=== PATIENT | female | born 1955 | race Caucasian/White ===

== ENCOUNTER 2016-03-11 11:03 | Emergency (ER) | payer MEDICAID, OTHER ==
[2016-03-11 11:53] VITALS: BP 122/69
--- NOTE | 2016-03-11 12:29 | UC ---
FLU HPI - HPI Summary HPI Summary: 60 F w/ PMH of asthma presents with dry cough, fever, body aches, vomiting, generalized weakness sinus pressure, runny nose, headaches, generalized abdominal pain, nausea for 3 days. Nausea and vomiting has resolved denies any diarrhea. Denies any chest pain or SOB. She had to use inhaler once at night. She took Tylenol last night. - History of Current Complaint Chief Complaint: UCRespiratory Stated Complaint: NAUSEA VOMITING COUGH HEADACHE CONGESTION Time Seen by Provider: 03/11/16 12:22 - Allergy/Home Medications Allergies/Adverse Reactions: Allergies Allergy/AdvReac Type Severity Reaction Status Date / Time Sulfa Drugs Allergy Itchy red Verified 03/11/16 11:54 rash,trouble breathing Environmental/Seasonal Allergy Unknown Uncoded 03/11/16 11:54 Hayfever Reaction Details PMH/Surg Hx/FS Hx/Imm Hx Endocrine History Of: Reports: Thyroid Disease - removed Denies: Diabetes Cardiovascular History Of: Denies: Cardiac Disorders, Hypertension Respiratory History Of: Reports: Asthma - INHALERS, OCCASIONAL WHEEZING Denies: COPD GI/ History Of: Denies: Ulcer - Surgical History Surgical History: Yes Surgery Procedure, Year, and Place: 1974 TONSILLECTOMY, [place]. 1989 THYROID NODULE REMOVED, [place]. 1990 LEFT OVARIAN CYSTECTOMY, [place]. 1985 NEUROMA REMOVED BOTTOM OF LEFT FOOT, [facility] [place] - Family History Known Family History: Positive: Hypertension - Social History Alcohol Use: Daily Substance Use Type: None Smoking Status (MU): Never Smoked Tobacco Review of Systems Constitutional: Fever ENT: Sore Throat, Nasal Discharge Respiratory: Cough Cardiovascular: Negative Gastrointestinal: Abdominal Pain Neurological: Headache All Other Systems Reviewed And Are Negative: Yes Physical Exam Triage Information Reviewed: Yes Appearance: Ill-Appearing Vital Signs: Initial Vital Signs Temp 98.6 F 03/11/16 11:50 Pulse 82 03/11/16 11:50 Resp 18 03/11/16 11:50 BP 122/69 03/11/16 11:50 Pulse Ox 99 03/11/16 11:50 Vital Signs Reviewed: Yes Eyes: Positive: Conjunctiva Clear ENT: Positive: Normal ENT inspection, Pharynx normal, Nasal drainage, TMs normal Neck: Positive: Supple, Nontender, No Lymphadenopathy Respiratory: Positive: Lungs clear, Normal breath sounds Cardiovascular: Positive: RRR Abdomen Description: Positive: Nontender, Soft Bowel Sounds: Positive: Present Flu Course/Dx - Course Course Of Treatment: flu postivie, symptoms consistent with flu, discussed too late for antiviral because at 36 hours currently, patient agrees with plan - Differential Dx/Diagnosis Differential Diagnosis/HQI/PQRI: Bronchitis, Influenza, Pneumonia, Upper Respiratory Infection Provider Diagnoses: influenza Discharge - Discharge Plan Condition: Good Disposition: HOME Prescriptions: Fluticasone NASAL SPRAY 50MCG* [Flonase NASAL SPRAY 50MCG*] 2 spray BOTH NARES DAILY #1 btl Patient Education Materials: Influenza (ED) Forms: *Work Release Referrals: Ulises Pollard MD [Primary Care Provider] - Additional Instructions: Take Tylenol and ibuprofen for muscle aches and fever every 6 hours. Use Flonase one spray twice a day in each nostril Practice good hand washing technique Saline rinse can be used multiple times a day for nasal congestion Use humidifier in room or place bowls of warm water around room Try to drink fluids every hour and eat a small snack every 3 hours Return to ED if develop fever that does not respond to Tylenol or ibuprofen, new productive cough, or if symptoms become worst or develop new symptoms.
== END 2016-03-11 12:56 | disposition home or self-care (01) ==
LOC: UCEAST 11:03
DX: J11.1 Influenza due to unidentified influenza virus with other respiratory manifestations (principal); Z88.2 Allergy status to sulfonamides; J45.909 Unspecified asthma, uncomplicated
CPT/HCPCS: 87502; 99212; G0463

== ENCOUNTER 2016-04-04 15:10 | Emergency (ER) | payer OTHER, MEDICAID ==
[2016-04-04 15:43] VITALS: BP 118/72
--- NOTE | 2016-04-04 16:41 | UC ---
Throat Pain/Nasal Skip HPI - HPI Summary HPI Summary: DIAGNOSED WITH THE FLU 03/11/16. SINCE THAT TIME, SINUS CONGESTION HAS CONTINUED. LAST WEEK HAS HAD HEADACHE FATIGUE, SINUS PAIN WORSEING ON RIGHT SIDE - History of Current Complaint Chief Complaint: UCGeneralIllness Stated Complaint: HEADACHE, THROAT PAIN Time Seen by Provider: 04/04/16 16:04 Hx Obtained From: Patient Onset/Duration: Gradual Onset, Lasting Weeks, Still Present Cough: Nonproductive Associated Signs & Symptoms: Positive: Sinus Discomfort, Nasal Discharge, Fever - Epiglottits Risk Factors Epiglottis Risk Factors: Negative - Allergies/Home Medications Allergies/Adverse Reactions: Allergies Allergy/AdvReac Type Severity Reaction Status Date / Time Sulfa Drugs Allergy Itchy red Verified 04/04/16 15:43 rash,trouble breathing Environmental/Seasonal Allergy Unknown Uncoded 04/04/16 15:43 Hayfever Reaction Details PMH/Surg Hx/FS Hx/Imm Hx Previously Healthy: Yes Endocrine History Of: Reports: Thyroid Disease - removed Denies: Diabetes Cardiovascular History Of: Denies: Cardiac Disorders, Hypertension Respiratory History Of: Reports: Asthma - INHALERS, OCCASIONAL WHEEZING Denies: COPD GI/ History Of: Denies: Ulcer - Surgical History Surgical History: Yes Surgery Procedure, Year, and Place: 1974 TONSILLECTOMY, [place]. 1989 THYROID NODULE REMOVED, [place]. 1990 LEFT OVARIAN CYSTECTOMY, [place]. 1985 NEUROMA REMOVED BOTTOM OF LEFT FOOT, [facility] [place] - Family History Known Family History: Positive: Hypertension - Social History Occupation: Employed Full-time Lives: With Family Alcohol Use: Occasionally Substance Use Type: None Smoking Status (MU): Never Smoked Tobacco Review of Systems Constitutional: Chills, Fatigue Skin: Negative Eyes: Negative ENT: Ear Ache, Nasal Discharge Respiratory: Cough Cardiovascular: Negative Gastrointestinal: Negative Genitourinary: Negative Motor: Negative Neurovascular: Negative Musculoskeletal: Negative Neurological: Negative Psychological: Negative All Other Systems Reviewed And Are Negative: Yes Physical Exam Triage Information Reviewed: Yes Appearance: No Pain Distress, Well-Nourished, Ill-Appearing - MILD, Thin Vital Signs: Initial Vital Signs Temp 98.8 F 04/04/16 15:40 Pulse 87 04/04/16 15:40 Resp 18 04/04/16 15:40 BP 118/72 04/04/16 15:40 Pulse Ox 98 04/04/16 15:40 Vital Signs Reviewed: Yes Eye Exam: Normal Eyes: Positive: Conjunctiva Clear ENT: Positive: Normal ENT inspection, Hearing grossly normal, Pharynx normal, Nasal congestion, TM bulging, TM dull Dental Exam: Normal Neck exam: Normal Neck: Positive: Supple, Nontender, No Lymphadenopathy Respiratory Exam: Normal Respiratory: Positive: Chest non-tender, Lungs clear, Normal breath sounds, No respiratory distress, No accessory muscle use Cardiovascular Exam: Normal Cardiovascular: Positive: RRR, No Murmur, Pulses Normal Abdominal Exam: Normal Abdomen Description: Positive: Nontender, No Organomegaly Musculoskeletal Exam: Normal Musculoskeletal: Positive: Strength Intact, ROM Intact Neurological Exam: Normal Psychological Exam: Normal Psychological: Positive: Normal Response To Family Skin Exam: Normal Throat Pain/Nasal Course/Dx - Differential Dx/Diagnosis Differential Diagnosis/HQI/PQRI: Otitis Media, Pharyngitis, Sinusitis, URI Provider Diagnoses: SINUSITIS Discharge - Discharge Plan Condition: Stable Disposition: HOME Prescriptions: Amoxicillin/Clavulanate TAB* [Augmentin TAB 875*] 875 mg PO BID #20 tab Benzonatate CAP* [Tessalon CAP*] 100 mg PO TID #15 cap Patient Education Materials: Sinusitis (ED) Forms: *Work Release Referrals: Ulises Pollard MD [Primary Care Provider] -
== END 2016-04-04 16:42 | disposition home or self-care (01) ==
LOC: UCEAST 15:10
DX: J32.9 Chronic sinusitis, unspecified (principal); Z88.2 Allergy status to sulfonamides
CPT/HCPCS: 99212; G0463

== ENCOUNTER 2016-10-08 15:45 | Emergency (ER) | payer OTHER ==
[2016-10-08 15:54] VITALS: BP 105/68
--- NOTE | 2016-10-08 16:39 | UC ---
Respiratory Complaint HPI - HPI Summary HPI Summary: Pt presents to the with complaints of face pressure, green discharge. Mild dental pain, eye pressure. No fevers, chills + PND + ear fullness L>R + mild cough, no productive. 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 Pt with nasal polyps - no surgery. PT with h/o sinusitis - states feels similar. Pt's medications reviewed this visit. - History of Current Complaint Chief Complaint: UCRespiratory Stated Complaint: URI Time Seen by Provider: 10/08/16 16:23 Hx Obtained From: Patient ?: No Onset/Duration: Gradual Onset, Lasting Days Severity Initially: Mild Severity Currently: Moderate Pain Intensity: 9 Character: Cough: Nonproductive Associated Signs And Symptoms: Negative: Fever, Chills, Dizziness - Allergies/Home Medications Allergies/Adverse Reactions: Allergies Allergy/AdvReac Type Severity Reaction Status Date / Time Sulfa Drugs Allergy Itchy red Verified 04/04/16 15:43 rash,trouble breathing Environmental/Seasonal Allergy Unknown Uncoded 04/04/16 15:43 Hayfever Reaction Details Home Medications: Home Medications Dextromethorphan-Phenylephrine [Cold Multi-Symptom Daytim] 1 tab PO 10/08/16 [ History] PMH/Surg Hx/FS Hx/Imm Hx Previously Healthy: Yes - Surgical History Surgical History: Yes Surgery Procedure, Year, and Place: 1974 TONSILLECTOMY, [place]. 1989 THYROID NODULE REMOVED, [place]. 1990 LEFT OVARIAN CYSTECTOMY, [place]. 1985 NEUROMA REMOVED BOTTOM OF LEFT FOOT, [facility] [place] - Family History Known Family History: Positive: Hypertension - Social History Occupation: Employed Full-time Lives: With Family Alcohol Use: Occasionally Substance Use Type: None Smoking Status (MU): Never Smoked Tobacco Review of Systems Constitutional: Negative Skin: Negative Eyes: Negative ENT: Ear Ache, Nasal Discharge, Sinus Congestion, Sinus Pain/Tenderness Respiratory: Negative Cardiovascular: Negative Gastrointestinal: Negative Genitourinary: Negative Motor: Negative Neurovascular: Negative Musculoskeletal: Negative Neurological: Negative Psychological: Negative All Other Systems Reviewed And Are Negative: Yes Physical Exam Triage Information Reviewed: Yes Appearance: Well-Appearing, No Pain Distress, Well-Nourished Vital Signs: Initial Vital Signs Temp 97.9 F 10/08/16 15:51 Pulse 83 10/08/16 15:51 Resp 18 10/08/16 15:51 BP 105/68 10/08/16 15:51 Pulse Ox 96 10/08/16 15:51 Vital Signs Reviewed: Yes Eye Exam: Normal Eyes: Positive: Conjunctiva Clear ENT Exam: Normal ENT: Positive: Hearing grossly normal, Pharynx normal, TMs normal, Other: - turbinates inflammed b/l left ear with + fluid right TM wnl No exudate, no erythema + PND + TTP sinuses L>R. Negative: Nasal drainage Dental Exam: Normal Neck exam: Normal Neck: Positive: Supple, Nontender, No Lymphadenopathy Respiratory Exam: Normal Respiratory: Positive: Chest non-tender, Lungs clear, Normal breath sounds, No respiratory distress, No accessory muscle use Cardiovascular Exam: Normal Cardiovascular: Positive: RRR, No Murmur, Pulses Normal Abdominal Exam: Normal Abdomen Description: Positive: Nontender, No Organomegaly, Soft Bowel Sounds: Positive: Present Musculoskeletal Exam: Normal Neurological Exam: Normal Neurological: Positive: Alert Psychological Exam: Normal Psychological: Positive: Normal Response To Family Skin Exam: Normal UC Diagnostic Evaluation - Laboratory O2 Sat by Pulse Oximetry: 96 Respiratory Course/Dx - Course Course Of Treatment: Pt presents with sinus congestion, PND, max sinus pain L> R. Pt with sx x 1 week. Pt with h/o sinusitis - states feels similar. Will give Amox. continue flonase. secretion precautions. PCP f/u prn - Differential Dx/Diagnosis Provider Diagnoses: sinusitis Discharge - Discharge Plan Condition: Stable Disposition: HOME Prescriptions: Amoxicillin PO (*) [Amoxicillin 875 MG (*)] 875 mg PO BID #20 tab Patient Education Materials: Rhinosinusitis (ED) Referrals: Ulises Pollard MD [Primary Care Provider] - Additional Instructions: - Stay well hydrated. Drink plenty of non-alcoholic, non-caffinated beverages. - After you have been on antibiotics for 2 days - change your toothbrush and your pillowcase. These infections are spread by secretions - do NOT share eating or drinking utensils - clean items you share with other people such as cell phones, computer mouse, TV remote, computer tablets, etc - Take antibiotics as prescribed until gone - continue to use your nasal spray as previously prescribed - okay to take decongestant as previous - Contact your doctor or return with questions or concerns
== END 2016-10-08 16:41 | disposition home or self-care (01) ==
LOC: UCEAST 15:45
DX: J32.9 Chronic sinusitis, unspecified (principal); Z88.2 Allergy status to sulfonamides
CPT/HCPCS: 99212; G0463

== ENCOUNTER 2017-08-15 08:16 | Emergency (ER) | payer OTHER ==
[2017-08-15 08:30] VITALS: BP 109/66
--- NOTE | 2017-08-15 09:16 | RAD ---
INDICATION: Right foot pain. TECHNIQUE: 3 views of the right foot were obtained. FINDINGS: There is soft tissue swelling present over the metatarsal bones. The bones are normal alignment. No fracture is seen. Joint spaces appear maintained. IMPRESSION: SOFT TISSUE SWELLING, NO FRACTURE IS SEEN.
--- NOTE | 2017-08-15 09:26 | UC ---
Arnold Yu Julia, scribed for Thee Jose MD on 08/15/17 at 0847 . Lower Extremity/Ankle HPI - HPI Summary HPI Summary: A 61 year old F presents to [facility] with a chief complaint of pain, redness, and swelling to the dorsal aspect of the right foot since yesterday. Patient denies hx of trauma, but states that she was wearing flip flops yesterday. Pain is 8/10 in severity, on triage. - History of Current Complaint Chief Complaint: UCLowerExtremity Stated Complaint: FOOT INJURY Time Seen by Provider: 08/15/17 08:21 Hx Obtained From: Patient Onset/Duration: Lasting Days Pain Intensity: 8 Pain Scale Used: 0-10 Numeric Able to Bear Weight: Yes - Allergies/Home Medications Allergies/Adverse Reactions: Allergies Allergy/AdvReac Type Severity Reaction Status Date / Time Sulfa (Sulfonamide Allergy rash Verified 08/15/17 08:31 Antibiotics) difficulty breathing Environmental/Seasonal Allergy Unknown Uncoded 04/04/16 15:43 Hayfever Reaction Details PMH/Surg Hx/FS Hx/Imm Hx Previously Healthy: Yes Endocrine History: Thyroid Disease - Surgical History Surgical History: Yes Surgery Procedure, Year, and Place: 1974 TONSILLECTOMY, [place]. 1989 THYROID NODULE REMOVED, [place]. 1990 LEFT OVARIAN CYSTECTOMY, [place]. 1985 NEUROMA REMOVED BOTTOM OF LEFT FOOT, [facility] [place] - Family History Known Family History: Positive: Hypertension - Social History Alcohol Use: Occasionally Substance Use Type: None Smoking Status (MU): Never Smoked Tobacco Review of Systems Skin: Other - erythema R foot Musculoskeletal: Edema - R foot, Myalgia - R foot All Other Systems Reviewed And Are Negative: Yes Physical Exam - Summary Physical Exam Summary: VITAL SIGNS: Reviewed. GENERAL: Patient is a well-developed and nourished female who is lying comfortable in the stretcher. Patient is not in any acute respiratory distress. HEAD AND FACE: Normocephalic EYES: PERRLA, EOMI x 2. EARS: Hearing grossly intact. MOUTH: Oropharynx within normal limits. NECK: Supple, trachea is midline, no adenopathy, no JVD, no carotid bruit. CHEST: Symmetric, no tenderness at palpation LUNGS: Clear to auscultation bilaterally. No wheezing or crackles. CVS: Regular rate and rhythm, S1 and S2 present, no murmurs or gallops appreciated. ABDOMEN: Soft, non-tender. Bowel sounds are normal. No abdominal abnormal pulsations. EXTREMITIES: Full ROM in all major joints, no cyanosis or clubbing. Swelling and tenderness to dorsal aspect of the R foot. NEURO: Alert and oriented x 3. No acute neurological deficits. Speech is normal and follows commands. SKIN: Dry and warm Triage Information Reviewed: Yes Vital Signs: Initial Vital Signs Temp 98 F 08/15/17 08:28 Pulse 82 08/15/17 08:28 Resp 16 08/15/17 08:28 BP 109/66 08/15/17 08:28 Pulse Ox 100 08/15/17 08:28 Vital Signs Reviewed: Yes Diagnostics - Radiology R FOOT XR Radiology Interpretation Completed By: Radiologist - SOFT TISSUE SWELLING, NO FRACTURE IS SEEN. Dr. Jose has reviewed this report. Lower Extremity Course/Dx - Course Course Of Treatment: X-ray shows no fracture or dislocation. This erythema and swelling in the right foot therefore I will treat as cellulitis. I recommended the patient to follow with the primary care physician in the next 2-3 days. She understands and agrees. Patient is hemodynamically stable, alert and oriented 3. - Differential Dx/Diagnosis Provider Diagnoses: Cellulitis Discharge - Sign-Out/Discharge Documenting (check all that apply): Discharge/Admit/Transfer - Discharge Plan Condition: Stable Disposition: HOME Prescriptions: Cephalexin CAP* [Keflex CAP*] 500 mg PO QID #40 cap Patient Education Materials: Cellulitis (ED) Forms: *Work Release Referrals: Les Mckeon MD [Primary Care Provider] - Additional Instructions: Take medications as instructed Increase your fluid intake Return to the if symptoms worsen - Billing Disposition and Condition Condition: STABLE Disposition: Home The documentation as recorded by the Arnold baumann Julia accurately reflects the service I personally performed and the decisions made by , Thee Jose MD.
== END 2017-08-15 09:21 | disposition home or self-care (01) ==
LOC: UCEAST 08:16
DX: L03.115 Cellulitis of right lower limb (principal); Z88.2 Allergy status to sulfonamides; Z91.09 Other allergy status, other than to drugs and biological substances
CPT/HCPCS: 99212; G0463

== ENCOUNTER 2017-08-17 09:32 | Emergency (ER) | payer OTHER ==
[2017-08-17 09:51] VITALS: BP 101/62
--- NOTE | 2017-08-17 15:12 | UC ---
Joel Yu Natalie, scribed for Charlotte Esquivel MD on 08/17/17 at 1258 . Lower Extremity/Ankle HPI - HPI Summary HPI Summary: The patient is a 61 y/o F presenting to the ED c/o pain and swelling in her right foot starting 08/14/17. She had been ambulating more than normal the day before. She came to [facility] on 08/15/17, where she had an XR taken, and it was negative for fracture. There was a possibility of cellulitis, so she was prescribed Keflex. The swelling has not decreased since then, but the redness has dissipated. The pain is rated 8/10 in severity. She denies fever and chills. She reports that she has had stress fractures in her left foot before, and this feels similar. Her orthopedist is Dr. Quiroz. - History of Current Complaint Chief Complaint: UCWounds Stated Complaint: FOOT PAIN Time Seen by Provider: 08/17/17 10:21 Hx Obtained From: Patient Onset/Duration: Sudden Onset, Lasting Days, Still Present Severity Initially: Moderate Severity Currently: Moderate Pain Intensity: 8 Pain Scale Used: 0-10 Numeric Aggravating Factor(s): Ambulation Alleviating Factor(s): Other - Keflex Feet (Multiple View): 1 - Swelling in the right dorsal foot - Allergies/Home Medications Allergies/Adverse Reactions: Allergies Allergy/AdvReac Type Severity Reaction Status Date / Time Sulfa (Sulfonamide Allergy rash Verified 08/17/17 09:51 Antibiotics) difficulty breathing Environmental/Seasonal Allergy Unknown Uncoded 08/17/17 09:51 Hayfever Reaction Details PMH/Surg Hx/FS Hx/Imm Hx - Additional Past Medical History Additional PMH: POSITIVE: stress fractures in right foot Previously Healthy: Yes Other Endocrine History: NEGATIVE: diabetes Respiratory History: Asthma - Surgical History Surgical History: Yes Surgery Procedure, Year, and Place: 1974 TONSILLECTOMY, [place]. 1989 THYROID NODULE REMOVED, [place]. 1990 LEFT OVARIAN CYSTECTOMY, [place]. 1985 NEUROMA REMOVED BOTTOM OF LEFT FOOT, [facility] [place] - Family History Known Family History: Positive: Hypertension, Diabetes - Social History Alcohol Use: Occasionally Substance Use Type: None Smoking Status (MU): Never Smoked Tobacco Review of Systems Constitutional: Other - NEGATIVE: fevers, chills Skin: Other - swelling of dorsum of left foot l ENT: Negative Respiratory: Negative Cardiovascular: Negative Gastrointestinal: Negative Genitourinary: Negative Motor: Negative Neurovascular: Negative Musculoskeletal: Other: - POSITIVE: pain in right foot with swelling; NEGATIVE: redness Neurological: Negative Psychological: Negative Is Patient Immunocompromised?: No All Other Systems Reviewed And Are Negative: Yes Physical Exam - Summary Physical Exam Summary: Appearance: Well-Appearing, No Pain Distress, Well-Nourished Eyes: conjunctiva clear, no discharge ENT: Hearing grossly normal, no muffled/hoarse voice. Neck: Normal, Supple Respiratory/Lung Sounds: Lungs clear, Normal breath sounds, No respiratory distress, No accessory muscle use Cardiovascular: RRR, No murmur Abdomen: Nontender, Soft, no guarding, not distended Bowel Sounds: Present Musculoskeletal: difficulty with weight bearing . Redness in the dorsal aspect of right foot has resolved but there is swelling present. There is significant tenderness noted. Neurological: Alert, muscle tone normal Psychiatric:Normal, age appropriate behavior Skin: Normal, Warm, Dry, Normal color Triage Information Reviewed: Yes Vital Signs: Initial Vital Signs Temp 98.6 F 08/17/17 09:46 Pulse 81 08/17/17 09:46 Resp 18 08/17/17 09:46 BP 101/62 08/17/17 09:46 Pulse Ox 97 08/17/17 09:46 Vital Signs Reviewed: Yes Lower Extremity Course/Dx - Course Course Of Treatment: The patient is a 61 y/o F presenting to [facility] c/o pain and swelling in her right foot starting on 08/14/17. She had been ambulating more than normal the day before she noticed the pain, redness, and swelling. She came to [facility] on 08/15, where she was prescribed Keflex because the foot XR was negative for fracture. The redness has since been relieved by the Keflex, but the swelling and pain is still present. She has a hx of stress fractures in her right foot and asthma, which she uses a ventolin inhaler for. She does not have a hx of diabetes, but it is present in her family. She denies fevers and chills. Medications reviewed. Allergies noted. Patient will be discharged home with instructions for cellulitis. She is advised to continue taking Keflex as it seems to be helping and start using the CAM boot. She is to follow up with her PCP in one week and orthopedist, Dr. Quiroz, in 2 days for a consult. Patient is agreeable with this plan. - Differential Dx/Diagnosis Provider Diagnoses: cellulitis Discharge - Sign-Out/Discharge Documenting (check all that apply): Discharge/Admit/Transfer - Pt will be discharged home. - Discharge Plan Condition: Stable Disposition: HOME Patient Education Materials: Cellulitis (ED) Referrals: Tyrel Quiroz MD [Medical Doctor] - 2 Days Les Mckeon MD [Primary Care Provider] - 7 Days Additional Instructions: Continue taking keflex Start using the CAM boot . Follow up with your primary care doctor in 1 week. Please follow up with orthopedics in 2 days Return to Urgent care / ER if symptoms get worse. - Billing Disposition and Condition Condition: STABLE Disposition: Home Images Feet (Multiple View): 1 - dorsal aspect The documentation as recorded by the Joel baumann Natalie accurately reflects the service I personally performed and the decisions made by me, Charlotte Esquivel MD.
== END 2017-08-17 11:03 | disposition home or self-care (01) ==
LOC: UCEAST 09:32
DX: L03.115 Cellulitis of right lower limb (principal); J45.909 Unspecified asthma, uncomplicated
CPT/HCPCS: 99211; G0463

== ENCOUNTER 2017-09-21 10:06 | Emergency (ER) | payer OTHER ==
[2017-09-21 10:13] VITALS: BP 111/73
[2017-09-21] MEDS ORDERED: Albuterol 2.5 MG/3 ML NEB.SOL* (0.083%) INH ONE (10:59)
--- NOTE | 2017-09-21 10:59 | UC ---
Respiratory Complaint HPI - HPI Summary HPI Summary: Patient states that for the past 3 days she has been feeling aches and pains and nasal congestion setting off her asthma. She is running out of her inhalers and last use was possibly on 09-18-17. Patient denies any chills or fever and states she had night wheezing yesterday. - History of Current Complaint Chief Complaint: UCRespiratory Stated Complaint: COUGH, CHEST CONGESTION Time Seen by Provider: 09/21/17 10:51 Hx Obtained From: Patient ?: No Onset/Duration: Sudden Onset Timing: Constant Severity Initially: Mild Severity Currently: Moderate Pain Intensity: 5 Character: Cough: Nonproductive Aggravating Factors: Nothing Alleviating Factors: Bronchodilator, OTC Meds Associated Signs And Symptoms: Positive: Wheezing, Dizziness, URI, Nasal Congestion Related History: Seasonal Allergies - Risk Factors Pulmonary Embolism Risk Factors: Negative Cardiac Risk Factors: Negative Pseudomonas Risk Factors: Negative Tuberculosis Risk Factors: Negative - Allergies/Home Medications Allergies/Adverse Reactions: Allergies Allergy/AdvReac Type Severity Reaction Status Date / Time Sulfa (Sulfonamide Allergy rash Verified 09/21/17 10:13 Antibiotics) difficulty breathing Environmental/Seasonal Allergy Unknown Uncoded 09/21/17 10:13 Hayfever Reaction Details PMH/Surg Hx/FS Hx/Imm Hx Previously Healthy: Yes Respiratory History: Asthma - Surgical History Surgical History: Yes Surgery Procedure, Year, and Place: 1974 TONSILLECTOMY, [place]. 1989 THYROID NODULE REMOVED, [place]. 1990 LEFT OVARIAN CYSTECTOMY, [place]. 1985 NEUROMA REMOVED BOTTOM OF LEFT FOOT, [facility] [place]. 2002 ARTHROSCOPIC LEFT KNEE [place] - Family History Known Family History: Positive: Hypertension, Diabetes - Social History Alcohol Use: Occasionally Substance Use Type: None Smoking Status (MU): Never Smoked Tobacco Review of Systems Constitutional: Negative Respiratory: Shortness Of Breath All Other Systems Reviewed And Are Negative: Yes Physical Exam Triage Information Reviewed: Yes Appearance: Well-Appearing, No Pain Distress, Well-Nourished Vital Signs: Initial Vital Signs Temp 98.2 F 09/21/17 10:09 Pulse 86 09/21/17 10:09 Resp 18 09/21/17 10:09 BP 111/73 09/21/17 10:09 Pulse Ox 97 09/21/17 10:09 Vital Signs Reviewed: Yes Eyes: Positive: Conjunctiva Clear ENT: Positive: Hearing grossly normal, Pharynx normal, TMs normal, Sinus tenderness, Uvula midline Neck: Positive: Supple, Nontender, No Lymphadenopathy Respiratory: Positive: Chest non-tender, No accessory muscle use, Wheezing, Expiration Cardiovascular: Positive: RRR, No Murmur, Pulses Normal, Brisk Capillary Refill Diagnostic Evaluation - Laboratory O2 Sat by Pulse Oximetry: 97 Respiratory Course/Dx - Course Course Of Treatment: asthma exacerbation, was treated with albuterol nebulization and first dose of prednisone was given at the . Patient had improvement of symptoms and resolution of wheezing with medications. Continue prednisone with breakfast for 4 days, inhalers as prescribed, f/u with PCP - Differential Dx/Diagnosis Provider Diagnoses: Bronchial Asthma exacerbation Discharge - Sign-Out/Discharge Documenting (check all that apply): Patient Departure - Discharge Plan Condition: Good Disposition: HOME Patient Education Materials: Fluticasone (By breathing), Asthma (DC) Referrals: Les Mckeon MD [Primary Care Provider] - - Billing Disposition and Condition Condition: GOOD Disposition: Home
[2017-09-21] MEDS ORDERED: predniSONE TAB* 20 MG PO ONE (11:00)
== END 2017-09-21 11:39 | disposition home or self-care (01) ==
LOC: UCEAST 10:06
DX: J45.901 Unspecified asthma with (acute) exacerbation (principal); Z88.2 Allergy status to sulfonamides; Z82.49 Family history of ischemic heart disease and other diseases of the circulatory system; Z83.3 Family history of diabetes mellitus
CPT/HCPCS: 99213; G0463; J7512

== ENCOUNTER 2018-01-07 15:19 | Emergency (ER) | payer OTHER ==
[2018-01-07 15:29] VITALS: BP 118/67
--- NOTE | 2018-01-07 15:29 | UC ---
Hand/Wrist HPI - HPI Summary HPI Summary: 62-year-old woman comes to clinic today with a chief complaint of pain in the right distal index finger. This prior to arrival she was making a bed and she was shoveling her hand underneath the bed and she struck something with her right index finger. She had pain right away and is primarily in the distal finger and she's having hard time moving the DIP joint of that finger. Movement and palpation makes the pain worse not moving it not palpating does not make the pain worse. No skin break. - History Of Current Complaint Stated Complaint: FINGER INJURY Time Seen by Provider: 01/07/18 15:22 - Allergies/Home Medications Allergies/Adverse Reactions: Allergies Allergy/AdvReac Type Severity Reaction Status Date / Time Sulfa (Sulfonamide Allergy rash Verified 01/07/18 15:24 Antibiotics) difficulty breathing Environmental/Seasonal Allergy Unknown Uncoded 01/07/18 15:24 Hayfever Reaction Details PMH/Surg Hx/FS Hx/Imm Hx Previously Healthy: Yes Respiratory History: Asthma - Surgical History Surgical History: Yes Surgery Procedure, Year, and Place: 1974 TONSILLECTOMY, [place]. 1989 THYROID NODULE REMOVED, [place]. 1990 LEFT OVARIAN CYSTECTOMY, [place]. 1985 NEUROMA REMOVED BOTTOM OF LEFT FOOT, [facility] [place]. 2002 ARTHROSCOPIC LEFT KNEE BRE[place] - Family History Known Family History: Positive: Hypertension, Diabetes - Social History Alcohol Use: Occasionally Substance Use Type: None Smoking Status (MU): Never Smoked Tobacco Review of Systems All Other Systems Reviewed And Are Negative: Yes Constitutional: Positive: Negative Skin: Positive: Negative Eyes: Positive: Negative ENT: Positive: Negative Respiratory: Positive: Negative Cardiovascular: Positive: Negative Gastrointestinal: Positive: Negative Motor: Positive: Negative Neurovascular: Positive: Negative Musculoskeletal: Positive: Other: - SEE HPI Neurological: Positive: Negative Psychological: Positive: Negative Is Patient Immunocompromised?: No Physical Exam Triage Information Reviewed: Yes Appearance: Well-Appearing, No Pain Distress, Well-Nourished Vital Signs Reviewed: Yes Eye Exam: Normal Eyes: Positive: Conjunctiva Clear Neck exam: Normal Neck: Positive: Supple Respiratory: Positive: No respiratory distress Musculoskeletal: Positive: Other: - Patient has some swelling and tenderness to palpation at the right index finger DIP. She keeps the joint slightly flexed. No sensation deficit normal capillary refill. Neurological Exam: Normal Neurological: Positive: Alert, Muscle Tone Normal Psychological Exam: Normal Psychological: Positive: Age Appropriate Behavior Skin Exam: Normal Hand/Wrist Course/Dx - Course Course Of Treatment: Order Information: FINGER RIGHT 2ND (INDEX). Accession Number: [id number]. CPT: 30856. Indication: RIGHT second finger distal interphalangeal joint region pain following injury. Jamming-type injury. Comparison: No relevant prior exams available on the [facility] [place] PACS for comparison. Technique: 3 views RIGHT second finger. REPORT AND IMPRESSION: #. Mild flexion deformity at the distal interphalangeal joint. Suggestion of tiny bone. fragments dorsal to the distal interphalangeal joint concerning for potential avulsion of. the extensor tendon. Correlate with clinical assessment. Fusiform soft tissue swelling. ___. <Electronically signed by Thee Zelaya MD in [place]> 01/07/18 1378. I discussed the x-ray results with the patient. A splint was placed on the left index finger at the DIP holding it in extension by nursing. Neurovascularly intact after splint placement. The plan is to follow-up with orthopedics. 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 CALL TO ARRANGE AN APPOINTMENT. GET RECHECKED FOR ANY WORSENING OF YOUR CONDITION OR QUESTIONS OR CONCERNS. - Billing Disposition and Condition Condition: STABLE Disposition: Home
== END 2018-01-07 16:00 | disposition home or self-care (01) ==
LOC: UCEAST 15:19
DX: M20.012 Mallet finger of left finger(s) (principal); Z88.2 Allergy status to sulfonamides
CPT/HCPCS: 73140; 99212; G0463

== ENCOUNTER 2018-03-23 15:12 | Emergency (ER) | payer OTHER ==
--- OUTSIDE RECORDS SUMMARY | 2018-03-23 15:17 | XMS REPORT | Continuity of Care Document ---
:1955 External Reference #:[id number] Author Name Tarah Mirza Care Team Providers Name Role Phone Radha Rock NP Primary Care Physician Unavailable Payers Type Date Identification Numbers Payment Provider Subscriber Policy Number: [id number] Keith Gaines PayID: [id number] [address] [place] [address] Advance Directives Description No Information Available Problems Date Description Provider Status Onset: 12/30/2016 Seasonal allergic rhinitis Vesna Osei NP Active Onset: 12/30/2016 Asthma Vesna Osei NP Active Family History Date Family Member(s) Problem(s) Comments Father Diabetes Type II Father Crohn's Disease Father Alzheimer's Disease age 83 Mother Diabetes Type II oral meds/diet/exercise, living at 85 Social History Type Date Description Comments Sex Unknown 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 Varn, N.P. Florastor 06/27/ Active Capsules 250mg 60caps 1 by R14.0 Radha 2017 mouth Varn, N.P. 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 each nostril every day Ventolin HFA / Active Aerosol 108(90Base 8gm inhale Radha 0000 ) mcg/Act two puffs Varn, N.P. into lungs every 4 hours as needed for cough and whee Amoxicillin/C 06/27/ Hx Tablets 875-125mg 20tabs one R68.84 Radah lavulanate 2018 - tablet by Varn, N.P. Potassium 07/07/ mouth 2018 twice daily for 10 days Medications Administered in Office Medication Date Status Form Strength Qnty SIG Indications Ordering Provider PPD Administered Injection Nurse Visit 7 [place] Immunizations CPT Code Status Date Vaccine Reaction Lot # [id number] Given 11/27/2017 Influenza Virus Vaccine, No immediate [id number] Quadrivalent, Split, reaction...jh Preservative Free Vital Signs Date Vital Result Comment 03/11/2018 1:07pm Height 66.25 inches 5'6.25" Weight 150.00 lb Heart Rate 79 /min BP Systolic 121 mmHg BP Diastolic 68 mmHg Body Temperature 97.0 F O2 % BldC Oximetry 96 % BMI (Body Mass Index) 24.0 kg/m2 02/20/2018 11:35am Height 66.0 inches 5'6" Heart Rate 74 /min BP Systolic Sitting 112 mmHg BP Diastolic Sitting 78 mmHg Pain Level 0 01/09/2018 2:59pm Height 66.0 inches 5'6" Weight 154.00 lb BP Systolic 118 mmHg BP Diastolic 74 mmHg Pain Level 4 BMI (Body Mass Index) 24.9 kg/m2 11/27/2017 11:02am Height 67 inches 5'7" Weight 154.00 lb Heart Rate 75 /min BP Systolic 110 mmHg BP Diastolic 72 mmHg Body Temperature 97.8 F O2 % BldC Oximetry 96 % BMI (Body Mass Index) 24.1 kg/m2 10/27/2017 1:21pm Height 67 inches 5'7" Weight 153.00 lb Heart Rate 77 /min BP Systolic 104 mmHg BP Diastolic 62 mmHg O2 % BldC Oximetry 97 % BMI (Body Mass Index) 24.0 kg/m2 06/27/2017 3:29pm Weight 149.00 lb Heart Rate 93 /min BP Systolic 122 mmHg BP Diastolic 60 mmHg Body Temperature 99.0 F O2 % BldC Oximetry 96 % 04/28/2017 1:42pm Weight 150.00 lb Heart Rate 76 /min BP Systolic 117 mmHg BP Diastolic 82 mmHg Body Temperature 97.9 F O2 % BldC Oximetry 98 % 12/30/2016 8:58am Height 67 inches 5'7" Weight 144.00 lb Heart Rate 83 /min BP Systolic Sitting 122 mmHg BP Diastolic Sitting 87 mmHg O2 % BldC Oximetry 92 % BMI (Body Mass Index) 22.6 kg/m2 Results Test Date Facility Test Result H/L Range Note Laboratory test 03/11/2018 [facility] Cytology <pending> finding [address] [place] [address] [phone] Lipid Profile 02/13/2018 [facility] Triglycerides 61 mg/dL 1 (Trig/Chol/HDL) [address] [place] [address] [phone] Cholesterol 198 mg/dL 2 HDL Cholesterol 103.7 mg/dL 3 LDL Cholesterol 82 mg/dL 4 Laboratory test finding 02/13/2018 [facility] Glucose 99 mg/dL N 70-100 [address] [place] [address] [phone] 1 Desirable: <150 Borderline High: 150-199 High: 200-499 Very High: >500 2 Desirable: <200 Borderline High: 200-239 High: >239 3 Low: <40 Desirable: 40-60 High: >60 4 Desirable: <100 Near Optimal: 100-129 Borderline High: 130-159 High: 160-189 Very High: >189 Procedures Description No Information Available Encounters Type Date Location Provider Dx Diagnosis Office Visit 02/20/2018 Orthopedic Hardy Reyes M20.011 Mallet finger of 11:00a [facility] [employer] AT right finger(s) [place] Office Visit 01/09/2018 Orthopedic Hardy Reyes M20.011 Mallet finger of 2:15p [facility] AT right finger(s) [place] Office Visit 11/27/2017 Julian Thompson.Merlin Low back pain 11:00a Medicine - [place] Z23 Encounter for immunization Office Visit 10/27/2017 1:00p Wilma Thompson Low back Medicine - N.P. 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 Be sure if you getan injury to get a booster. You need to be getting between 1,000 - 1,200 mg of Calcium in daily. Thebest way to supplement what you get in your diet is to drink Calcium fortified orange juice. If you take a Calcium supplement be sure it has Vitamin D in it to help absorption.Z12.31 Encounter for screening mammogram for malignant neoplasm ofComments:I have ordered your routine screening mammogram. The imaging department will give you your results at the time of your visit. I encourage you to do self exams. If you should notice any masses or thickening, please give the office a call.K58.0 Irritable bowel syndrome with diarrheaComments:For your history of irritable bowel syndrome: Continue with the probiotic, and stay away from food triggers.K21.9 Gastro- esophageal reflux disease without esophagitisComments:For your esophageal reflux : Continue with your current management. I advise you to avoid food triggers. These include: Spicy, greasy, and acidic foods, along with coffee and alcohol. If at any point you feel your symptoms are not well controlled, please contact the office.J30.9 Allergic rhinitis, unspecifiedComments:For your allergies: Continue with your current management. If you should feel your symptoms are not being well controlled, please give the office a call.Z01.419 Encounter for gynecological examination (general) (routine)Comments:You have had your pap smear today.The office will contact you with the results. If this is normal I will repeat it in 3 years.
[2018-03-23 15:32] VITALS: BP 104/63
[2018-03-23] MEDS ORDERED: Ibuprofen TAB* 600 MG PO ONE (15:52)
--- NOTE | 2018-03-23 15:55 | UC ---
FLU HPI - HPI Summary HPI Summary: 62-year-old woman comes in with a chief complaint of bodyaches fevers sore throat headache chills since this morning. She's not tried any over-the- counter medications. Throat hurts all time including when she swallows. No chest congestion or shortness of breath. - History of Current Complaint Chief Complaint: UCGeneralIllness Stated Complaint: SINUS CONGESTION, AND NAUSEA Time Seen by Provider: 03/23/18 15:49 Pain Intensity: 4 - Allergy/Home Medications Allergies/Adverse Reactions: Allergies Allergy/AdvReac Type Severity Reaction Status Date / Time Sulfa (Sulfonamide Allergy rash Verified 03/23/18 15:33 Antibiotics) difficulty breathing Environmental/Seasonal Allergy Unknown Uncoded 03/23/18 15:33 Hayfever Reaction Details Home Medications: Home Medications Fluticasone NASAL SPRAY 50MCG* [Flonase NASAL SPRAY 50MCG*] 2 spray BOTH NARES DAILY PRN 03/23/18 [History Confirmed 03/23/18] Ibuprofen TAB* [Advil TAB*] 200 mg PO Q6H PRN 03/23/18 [History Confirmed ] PMH/Surg Hx/FS Hx/Imm Hx Previously Healthy: Yes - Surgical History Surgical History: Yes Surgery Procedure, Year, and Place: 1974 TONSILLECTOMY, [place]. 1989 THYROID NODULE REMOVED, [place]. 1990 LEFT OVARIAN CYSTECTOMY, [place]. 1985 NEUROMA REMOVED BOTTOM OF LEFT FOOT, [facility] [place]. 2002 ARTHROSCOPIC LEFT KNEE [place] - Family History Known Family History: Positive: Hypertension, Diabetes - Social History Alcohol Use: Occasionally Substance Use Type: None Smoking Status (MU): Never Smoked Tobacco Review of Systems All Other Systems Reviewed And Are Negative: Yes Constitutional: Positive: Fever, Chills Skin: Positive: Negative Eyes: Positive: Negative ENT: Positive: Sore Throat, Nasal Discharge Respiratory: Positive: Cough Cardiovascular: Positive: Negative Gastrointestinal: Positive: Negative Motor: Positive: Negative Neurovascular: Positive: Negative Musculoskeletal: Positive: Myalgia Neurological: Positive: Headache Psychological: Positive: Negative Is Patient Immunocompromised?: No Physical Exam Triage Information Reviewed: Yes Appearance: No Pain Distress, Well-Nourished, Ill-Appearing - MILD Vital Signs: Initial Vital Signs Temp 98.4 F 03/23/18 15:29 Pulse 93 03/23/18 15:29 Resp 16 03/23/18 15:29 BP 104/63 03/23/18 15:29 Pulse Ox 98 03/23/18 15:29 Vital Signs Reviewed: Yes Eye Exam: Normal Eyes: Positive: Conjunctiva Clear ENT: Positive: Pharyngeal erythema, Nasal congestion, Nasal drainage, TMs normal Neck exam: Normal Neck: Positive: Supple Respiratory: Positive: Lungs clear, Normal breath sounds, No respiratory distress Cardiovascular: Positive: RRR Musculoskeletal Exam: Normal Musculoskeletal: Positive: Strength Intact, ROM Intact Neurological Exam: Normal Neurological: Positive: Alert, Muscle Tone Normal Psychological Exam: Normal Psychological: Positive: Age Appropriate Behavior Skin Exam: Normal Flu Course/Dx - Differential Dx/Diagnosis Provider Diagnosis: Influenza-like illness, Pharyngitis, Fever Discharge - Sign-Out/Discharge Documenting (check all that apply): Patient Departure All imaging exams completed and their final reports reviewed: No Studies - Discharge Plan Condition: Stable Disposition: HOME Patient Education Materials: Pharyngitis (ED), Fever in Adults (ED), Upper Respiratory Infection (ED) Referrals: Les Mckeon MD [Primary Care Provider] - - Billing Disposition and Condition Condition: STABLE Disposition: Home
[2018-03-23 16:20] LABS: Influenza A Molecular NEGATIVE (Negative); Influenza B Molecular NEGATIVE (Negative)
== END 2018-03-23 16:35 | disposition home or self-care (01) ==
LOC: UCEAST 15:12
DX: J11.1 Influenza due to unidentified influenza virus with other respiratory manifestations (principal); R50.9 Fever, unspecified; Z91.09 Other allergy status, other than to drugs and biological substances; Z88.2 Allergy status to sulfonamides
CPT/HCPCS: 87651; 99211; A9270-GY; G0463

== ENCOUNTER 2018-08-12 11:35 | Emergency (ER) | payer OTHER ==
--- OUTSIDE RECORDS SUMMARY | 2018-08-12 11:42 | XMS REPORT | Continuity of Care Document ---
:1955 External Reference #:[id number] Author Name Camila Rogel Care Team Providers Name Role Phone Radha Rock NP Primary Care Physician Unavailable Payers Date Identification Numbers Payment Provider Subscriber Policy Number: [id number] Keith Gaines PayID: [id number] [address] [place] [address] Problems Active Problems Provider Date Seasonal allergic rhinitis Vesna Osei NP Onset: 12/30/2016 Asthma Vesna Osei NP Onset: 12/30/2016 Family History Date Family Member(s) Observation Comments Father Diabetes Type II Father Crohn's Disease Father Alzheimer's Disease age 83 Mother Diabetes Type II oral meds/diet/exercise, living at 85 Social History Type Date Description Comments Sex Unknown 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 30tabs Radha Varn, 06/27/2017 200mg Tablets N.P. Florastor 1 by mouth twice 60caps R14.0 Radha Varn, 06/27/2017 250mg a day N.P. Capsules Fluticasone spray two sprays 16gm Radha Varn, Propionate in each nostril N.P. 50mcg/Act every day Suspension Ventolin HFA Inhale Two Puffs 18units Radha Varn, By Mouth Every 4 N.P. 108(90Base) mcg/Act Hours as Needed Aerosol For Cough And Wheeze History Medications Benzonatate take one or two 20caps J06.9 Jordon Jiang, MARTHA 04/20/2018 - 100mg capsules every 8 04/27/2018 Capsules hours as needed for cough. Amoxicillin/Clavulan one tablet by 20tabs R68.84 Radha Kimballkusum, 2017 - ate Potassium mouth twice daily N.P. 07/07/2017 for 10 days 875-125mg Tablets Omeprazole 1 by mouth every 30caps K58.0 Vesna 04/28/2017 - 20mg day MARTHA Osei 08/05/[address] Medications Administered in Office Medication SIG Qnty Indications Ordering Provider Date PPD Injection Nurse Visit Too 01/27/2017 Immunizations CPT Code Status Date Vaccine Reaction Lot # [id number] Given 08/05/2018 Tdap - No immediate reaction 525np Tetanus/Diptheria/Acellular kfs Pertussis [id number] Given 11/27/2017 Influenza Virus Vaccine, No immediate [id number] Quadrivalent, Split, reaction...jh Preservative Free Vital Signs Date Vital Result Comment 08/05/2018 11:10am Height 66. inches 5'6" Weight 156.25 lb Heart Rate 75 /min BP Systolic 112 mmHg BP Diastolic 68 mmHg Body Temperature 96.9 F O2 % BldC Oximetry 96 % BMI (Body Mass Index) 25.2 kg/m2 04/20/2018 11:34am Height 66. inches 5'6" Weight 150.25 lb Heart Rate 79 /min BP Systolic 111 mmHg BP Diastolic 62 mmHg Body Temperature 97.3 F O2 % BldC Oximetry 97 % BMI (Body Mass Index) 24.2 kg/m2 03/20/2018 11:06am Height 66. inches 5'6" Weight 150.00 lb Heart Rate 78 /min BP Systolic Sitting 106 mmHg BP Diastolic Sitting 70 mmHg Respiratory Rate 12 /min Pain Level 3 BMI (Body Mass Index) 24.2 kg/m2 03/11/2018 1:07pm Height 66.25 inches 5'6.25" Weight [...] Test Result H/L Range Note Laboratory test 04/20/2018 [facility] Operator Marg[facility] In House Influenza A/B NEG A/NEG B finding Rapid Rapid Influenza 03/23/2018 [facility] Influenza A NEGATIVE Negative 1 A & B Molecular [address] [place] [address] [phone] Influenza B Molecular NEGATIVE Negative Laboratory test 03/23/2018 [facility] Rapid Strep Negative Negative [address] [place] [address] [phone] Laboratory test 03/11/2018 [facility] Cytology <pending> finding [address] [place] [address] [phone] Lipid Profile 02/13/2018 [facility] Triglycerides 61 mg/dL 3 (Trig/Chol/HDL) [address] [place] [address] [phone] Cholesterol 198 mg/dL 4 HDL Cholesterol 103.7 mg/dL 5 LDL Cholesterol 82 mg/dL 6 Laboratory test finding 02/13/2018 [facility] Glucose 99 mg/dL N 70-[address] [place] [address] [phone] 1 Gutter Hanger: [id number] G[employer] Hanger: [id number] Desirable: <150 Borderline High: 150-199 High: 200-499 Very High: >500 4 Desirable: <200 Borderline High: 200-239 High: >239 5 Low: <40 Desirable: 40-60 High: >60 6 Desirable: <100 Near Optimal: 100-129 Borderline High: 130-159 High: 160-189 Very High: >189 Encounters Type Date Location Provider Dx Diagnosis Office Visit 04/20/2018 [facility] Internal Jordon Jiang NP J06.9 Acute upper 11:40a Medicine - [facility] respiratory infection, unspecified Office Visit 03/20/2018 Orthopedic Nette Murray0.011 Mallet finger of 10:30a Services Of [facility] AT MD right finger(s) [place] Office Visit 03/11/2018 [facility] Internal Radha Rock, Z00.00 Encntr for general 1:00p Medicine - [facility] N.P. adult medical exam w/o abnormal findings Z12.31 Encntr screen mammogram for malignant neoplasm of breast K58.0 Irritable bowel syndrome with diarrhea K21.9 Gastro-esophageal reflux disease without esophagitis J30.9 Allergic rhinitis, unspecified Z11.51 Encounter for screening for human papillomavirus (HPV) Office Visit 02/20/2018 11:00a Orthopedic Hardy Reyes M20.011 Mallet finger Services Of Churn Operator Margarine of right AT [place] finger(s) Office Visit 01/09/2018 2:15p Orthopedic Nette Murray0.011 Mallet finger Services Of Argenis DIAS of right AT [place] finger(s) Office Visit 11/27/2017 11:00a [facility] Kortney Rock M54.5 Low back pain Medicine - [facility] N.P. Z23 Encounter for immunization Office Visit 10/27/2017 1:00p [facility] Seth Odom4.5 Low back pain Medicine - [facility] N.P. Office Visit 06/27/2017 3:40p [facility] Internal Radha Varn, R68.84 Jaw pain Medicine - [facility] N.P. R14.0 Abdominal distension (gaseous) Office Visit 04/28/2017 1:40p [facility] Internal Vesna K58.0 Irritable bowel Medicine - Suite Osei, OCCUPATIONAL THERAPY AIDE syndrome with R diarrhea Office Visit 12/30/2016 9:10a [facility] Internal Vesna K58.0 Irritable bowel Medicine - Suite Osei, OCCUPATIONAL THERAPY AIDE syndrome with R diarrhea Z12.31 Encntr screen mammogram for malignant neoplasm of breast Plan of Treatment 08/05/2018 - Kassandra Moran M.D.S23.41xA Sprain of ribs, initial encounterFollow up:as needed
--- OUTSIDE RECORDS SUMMARY | 2018-08-12 11:42 | XMS REPORT | Continuity of Care Document ---
:1955 External Reference #:[id number] Author Name Belgica Berry Care Team Providers Name Role Phone Radha Rock NP Primary Care Physician Unavailable Payers Date Identification Numbers Payment Provider Subscriber Policy Number: [id number] Keith Gaines PayID: [id number] [address] [place] [address] Problems Active Problems Provider Date Seasonal allergic rhinitis Vesna Osei NP Onset: 12/30/2016 Asthma Vesna Osei NP Onset: 12/30/2016 Family History Date Family Member(s) Observation Comments Father Diabetes Type II Father Crohn's Disease Father Alzheimer's Disease age 83 Mother Diabetes Type II oral meds/diet/exercise, living at 85 Social History Type Date Description Comments Sex Unknown 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 Influenza A NEGATIVE Negative 1 A & B Molecular [address] [place] [address] [phone] Influenza B Molecular NEGATIVE Negative Laboratory test 03/23/2018 [facility] Rapid Strep Negative Negative [address] [address] [phone] Laboratory test 03/11/2018 [facility] Cytology <pending> finding [address] [place] [address] [phone] Lipid Profile 02/13/2018 [facility] Triglycerides 61 mg/dL 3 (Trig/Chol/HDL) [address] [place] [address] [phone] Cholesterol 198 mg/dL 4 HDL Cholesterol 103.7 mg/dL 5 LDL Cholesterol 82 mg/dL 6 Laboratory test finding 02/13/2018 [facility] Glucose 99 mg/dL N 70-[address] [place] [address] [phone] 1 Plant Controller: [id number] Plant Controller: [id number] Desirable: <150 Borderline High: 150-199 High: 200-499 Very High: >500 4 Desirable: <200 Borderline High: 200-239 High: >239 5 Low: <40 Desirable: 40-60 High: >60 6 Desirable: <100 Near Optimal: 100-129 Borderline High: 130-159 High: 160-189 Very High: >189 Encounters Type Date Location Provider Dx Diagnosis Office Visit 04/20/2018 [facility] Internal Jordon Jiang NP J06.9 Acute upper 11:40a Medicine - [facility] respiratory infection, unspecified Office Visit 03/20/2018 Orthopedic Nette Murray0.011 Mallet finger of 10:30a Services Of [facility] AT MD right finger(s) [place] Office Visit 03/11/2018 [facility] Internal Radha Rock, Z00.00 Encntr [...] Hardy Reyes M20.011 Mallet finger Services Of Investigative Research Specialist of right AT [place] finger(s) Office Visit 01/09/2018 2:15p Orthopedic Nette Murray0.011 Mallet finger Services Of Argenis DIAS of right AT [place] finger(s) Office Visit 11/27/2017 11:00a [facility] Kortney Rock M54.5 Low back pain Medicine - [facility] N.P. Z23 Encounter for immunization Office Visit 10/27/2017 1:00p [facility] Seth Odom4.5 Low back pain Medicine - [facility] N.P. Office Visit 06/27/2017 3:40p [facility] Internal Radha Varn, R68.84 Jaw pain Medicine - [facility] N.P. R14.0 Abdominal distension (gaseous) Office Visit 04/28/2017 1:40p [facility] Internal Vesna K58.0 Irritable bowel Medicine - Suite Osei, CLOCKSMITH syndrome with R diarrhea Office Visit 12/30/2016 9:10a [facility] Internal Vesna K58.0 Irritable bowel Medicine - Suite Osei, CLOCKSMITH syndrome with R diarrhea Z12.31 Encntr screen mammogram for malignant neoplasm of breast Plan of Treatment 08/05/2018 - Kassandra Moran M.D.S23.41xA Sprain of ribs, initial encounterFollow up:as needed
[2018-08-12 11:52] VITALS: BP 112/71
--- NOTE | 2018-08-12 12:07 | UC ---
Cardiac HPI - HPI Summary HPI Summary: 62-year-old woman comes in with a chief complaint of left lower anterior chest pain. Pain started when the patient tripped and fell at work on August 04, 2018. She also struck her left knee at that time and he feels completely better now she is only worried about her ribs. Pain is worse when she takes a deep breath when she rolls on it or when she pushes on it. Pain is less when she does not partake in any these activities. No abdominal pain eating and drinking well no fevers no chills no chest congestion. Some but she feels a clicking in that area when she breathes. No rash. - History of Current Complaint Chief Complaint: UCGeneralIllness Stated Complaint: LT SIDE RIB PAIN Time Seen by Provider: 08/12/18 11:54 Pain Intensity: 7 - Allergy/Home Medications Allergies/Adverse Reactions: Allergies Allergy/AdvReac Type Severity Reaction Status Date / Time Sulfa (Sulfonamide Allergy rash Verified 08/12/18 11:52 Antibiotics) difficulty breathing Environmental/Seasonal Allergy Unknown Uncoded 08/12/18 11:52 Hayfever Reaction Details PMH/Surg Hx/FS Hx/Imm Hx Previously Healthy: Yes Respiratory History: Asthma - Surgical History Surgical History: Yes Surgery Procedure, Year, and Place: 1974 TONSILLECTOMY, [place]. 1989 THYROID NODULE REMOVED, [place]. 1990 LEFT [place], [place]. 1985 [place] [facility] [place] ARTHROSCOPIC LEFT KNEE [place] - Family History Known Family History: Positive: Hypertension, Diabetes - Social History Alcohol Use: Occasionally Substance Use Type: None Smoking Status (MU): Never Smoked Tobacco Review of Systems All Other Systems Reviewed And Are Negative: Yes Constitutional: Positive: Negative Skin: Positive: Negative Eyes: Positive: Negative ENT: Positive: Negative Respiratory: Positive: Other - SEE HPI Cardiovascular: Positive: Chest Pain Gastrointestinal: Positive: Negative Motor: Positive: Negative Neurovascular: Positive: Negative Musculoskeletal: Positive: Negative Neurological: Positive: Negative Psychological: Positive: Negative Is Patient Immunocompromised?: No Physical Exam Triage Information Reviewed: Yes Appearance: Well-Appearing, No Pain Distress, Well-Nourished Vital Signs: Initial Vital Signs Temp 98.5 F 08/12/18 11:49 Pulse 82 08/12/18 11:49 Resp 17 08/12/18 11:49 BP 112/71 08/12/18 11:49 Pulse Ox 95 08/12/18 11:49 Vital Signs Reviewed: Yes Eye Exam: Normal Eyes: Positive: Conjunctiva Clear Neck: Positive: Supple, Nontender Respiratory: Positive: Lungs clear, Normal breath sounds, No respiratory distress, Other: - TENDER TO PALPATION LEFT LOWER ANTERIOR CHEST Cardiovascular: Positive: RRR Abdomen Description: Positive: Nontender, Soft Musculoskeletal Exam: Normal Musculoskeletal: Positive: Strength Intact, ROM Intact Neurological: Positive: Alert, Muscle Tone Normal Psychological: Positive: Age Appropriate Behavior Skin Exam: Normal - Assessment/Plan Course Of Treatment: Patient Name: JOSE MENA Medical Record#: [id number] Ordering Physician: Shahzad Velázquez MD Acct.#: [id number] : 1955 Age: 62 Sex: F Location: [facility] Exam Date: 08/12/18 1155 ADM Status: REG ER Order Information: RIBS LT UNI W/PA CH MIN 3 VWS Accession Number: [id number] CPT: 84379 INDICATION: Left rib injury. COMPARISON: Comparison is made with a prior chest x-ray study from October 03, 2009. TECHNIQUE: 5 views of the left ribs and dual-energy PA views of the chest were obtained. FINDINGS: There appear to be nondisplaced fractures of the left anterior seventh and eighth ribs. The heart is within normal limits in size. The lungs are clear. There is no evidence for pneumothorax or pleural effusion. IMPRESSION: NONDISPLACED FRACTURES OF THE LEFT ANTERIOR SEVENTH AND EIGHTH RIBS. <Electronically signed by Jaya Wray MD in OV> 08/12/18 1250 I discussed the x-rays with the patient. Patient went home with an incentive spirometer. She can follow-up with her primary care doctor as needed get reevaluated sooner if worse or any questions or concerns. - Clinical Impression Provider Diagnosis: Left rib fracture Discharge - Sign-Out/Discharge Documenting (check all that apply): Patient Departure All imaging exams completed and their final reports reviewed: Yes - Discharge Plan Condition: Stable Disposition: HOME Patient Education Materials: Rib Fracture (ED) Referrals: Les Mckeon MD [Primary Care Provider] - Additional Instructions: FOLLOW UP WITH YOUR DOCTOR IF NOT COMPLETELY IMPROVED. USE THE INCENTIVE SPIROMETER EVERY 4 HOURS OR MORE FREQUENTLY TO HELP AVOID A RESPIRATORY INFECTION. GET RECHECKED SOONER IF YOUR CONDITION WORSENS; PAIN, SHORTNESS OF BREATH, FEVER , YOU FEEL ILL OR ANY QUESTIONS OR CONCERNS. - Billing Disposition and Condition Condition: STABLE Disposition: Home
== END 2018-08-12 13:05 | disposition home or self-care (01) ==
LOC: UCEAST 11:35
DX: S22.32XA Fracture of one rib, left side, initial encounter for closed fracture (principal); W01.0XXA Fall on same level from slipping, tripping and stumbling without subsequent striking against object, initial encounter; Y92.89 Other specified places as the place of occurrence of the external cause; Z88.2 Allergy status to sulfonamides
CPT/HCPCS: 99211; G0463

== ENCOUNTER 2019-04-01 09:20 | Emergency (ER) | payer OTHER ==
--- OUTSIDE RECORDS SUMMARY | 2019-04-01 09:26 | XMS REPORT | Continuity of Care Document ---
:1955 External Reference #:[id number] Author Name Radha Rock N.P. (transmitted by agent of provider Libby Do) Address [address], [place] [address] Care Team Providers Name Role Phone [facility] - Primary Care Care Team Information Bridge Teacher [phone] Kassandra Moran MD - Internal Care Team Information Bridge Teacher Medicine Problems Active Problems Provider Date Seasonal allergic rhinitis Vesna Osei NP Onset: 12/30/2016 Asthma Vesna Osei NP Onset: 12/30/2016 Social History Type Date Description Comments Sex Unknown ETOH Use Drinks 3 Alcoholic Beverages Per Week Tobacco Use Start: Unknown Patient has never smoked Smoking Status Reviewed: 03/15/19 Patient has never smoked Exercise Exercises regularly Home gym, walking, Type/Frequency swim, ski Allergies, Adverse Reactions, Alerts Active Allergies Reaction Severity Comments Date Sulfa Antibiotics rash,hives, itching 12/30/2016 Medications Active Medications SIG Qnty Indications Ordering Date Provider Tizanidine HCL one by mouth every 30caps M54.6 Radha Rock, 03/15/2019 4mg 8 hours as needed N.P. Capsules muscle spasms Azithromycin 2 tabs by mouth on 6tabs J01.90 Randi 12/28/2018 250mg day 1; 1 tab by Emily LandryDHayley Tablets mouth every day on days 2-5 Prednisone 4 tabs by mouth 20tabs J45.998 Randi 12/28/2018 10mg days 1-2; 3 tabs Cotton MHayleyD. Tablets by mouth on days 3-4, 2 tabs by mouth on days 5-6, 1 tab by mouth days 7-8 Flovent Diskus 1 inhalation twice 60units J45.998 Randi 12/28/2018 daily Chandrakant Landry 100mcg/Blist Aerosol Ibu-200 2 tab as needed. 30tabs Radha Rock, 06/27/2017 200mg Tablets N.P. Fluticasone spray two sprays 16gm Radha Rock, Propionate in each nostril N.P. 50mcg/Act every day Suspension Ventolin HFA inhale two puffs 18gm Randi by mouth every 4 Chandrakant Landry 108(90Base) mcg/Act hours as needed Aerosol for cough and wheeze Medications Administered in Office Medication SIG Qnty Indications Ordering Provider Date PPD Injection Nurse Visit [place] 01/27/2017 Immunizations CPT Code Status Date Vaccine Reaction Lot # 33974 Given 08/05/2018 Tdap - No immediate reaction 525np Tetanus/Diptheria/Acellular kfs Pertussis [id number] Given 11/27/2017 Influenza Virus Vaccine, No immediate [id number] Quadrivalent, Split, reaction...jh Preservative Free Vital Signs Date Vital Result Comment 03/15/2019 2:09pm Height 66. inches 5'6" Weight 148.50 lb Heart Rate 79 /min BP Systolic Sitting 114 mmHg BP Diastolic Sitting 65 mmHg Body Temperature 98.6 F O2 % BldC Oximetry 94 % BMI (Body Mass Index) 24.0 kg/m2 01/13/2019 11:02am Height 66. inches 5'6" Weight 149.25 lb Heart Rate 69 /min BP Systolic 105 mmHg BP Diastolic 65 mmHg O2 % BldC Oximetry 97 % BMI (Body Mass Index) 24.1 kg/m2 Results Description No Information Available Procedures Description No Information Available Medical Devices Description No Information Available Encounters Type Date Location Provider Dx Diagnosis Office Visit 01/13/2019 [facility] Internal HODA Cullen R07.81 Pleurodynia 11:00a Medicine - [facility] N95.1 Menopausal and female climacteric states Office Visit 12/28/2018 3:20p [facility] Internal Randi J01.90 Acute sinusitis, Medicine - Chandrakant Landry unspecified [facility] J45.998 Other asthma Assessments Date Code Description Provider 03/15/2019 M54.6 Pain in thoracic spine Jimmy King.P. 01/13/2019 R07.81 Pleurodynia Poly Acevedo, [facility] 01/13/2019 N95.1 Menopausal and female climacteric states Poly Acevedo, [facility]OD[facility] 12/28/2018 J01.90 Acute sinusitis, unspecified Randi Landry M.D. 12/28/2018 J45.998 Other asthma Randi Landry M.D. Plan of Treatment 03/15/2019 - Radha Rock N.Luis Daniel.M54.6 Pain in thoracic spineNew Medication: Tizanidine HCL 4 mg - one by mouth every 8 hours as needed muscle spasmsNew Therapy:Physical TherapyComments:To help you with your back pain I have prescribed a muscle relaxant, Tizanidine 4 mg. I have orderedphysical therapy for you. try boosting the Ibuprofen to 600 mg, every 6 hours for pain.If you do notgradually improve, please contact the office. Functional Status Description No Information Available Mental Status Description No Information Available Referrals Description No Information Available
--- NOTE | 2019-04-01 11:05 | UC ---
Back Pain HPI - HPI Summary HPI Summary: 63-year-old female presenting with upper back pain "between her shoulder blades "for the last couple weeks but states pain worsened last night when she bent over and reached down for something. States she saw her nurse practitioner 2 weeks ago and was diagnosed with muscle spasms. Patient states she is supposed to follow up with physical therapy next Friday. She denies radiating pain. States pain worse with lifting her right arm. Denies other known trauma or injury. Denies neck pain. Denies taking anything for pain relief. - History of Current Complaint Chief Complaint: UCBackPain Stated Complaint: BACK PAIN Hx Obtained From: Patient Pain Intensity: 9 Pain Scale Used: 0-10 Numeric - Allergies/Home Medications Allergies/Adverse Reactions: Allergies Allergy/AdvReac Type Severity Reaction Status Date / Time Sulfa (Sulfonamide Allergy rash Verified 04/01/19 09:37 Antibiotics) difficulty breathing Environmental/Seasonal Allergy Unknown Uncoded 04/01/19 09:37 Hayfever Reaction Details Home Medications: Home Medications Albuterol HFA INHALER* [Ventolin HFA Inhaler*] 1 puff INH Q4H PRN #1 mdi [Rx Confirmed 04/01/19] Fluticasone NASAL SPRAY 50MCG* [Flonase NASAL SPRAY 50MCG*] 2 spray BOTH NARES DAILY PRN 03/23/18 [History Confirmed 04/01/19] Ibuprofen TAB* [Advil TAB*] 200 mg PO Q6H PRN 03/23/18 [History Confirmed ] PMH/Surg Hx/FS Hx/Imm Hx - Surgical History Surgical History: Yes Surgery Procedure, Year, and Place: 1974 TONSILLECTOMY, [place]. 1989 THYROID NODULE REMOVED, [place]. 1990 LEFT O[place]IAN CYSTECTOMY, [place]. 1985 NEUROMA REMOVED BOTTOM OF LEFT FOOT, [facility] [place]. 2002 ARTHROSCOPIC LEFT KNEE [place] - Family History Known Family History: Positive: Hypertension, Diabetes - Social History Alcohol Use: Occasionally Substance Use Type: None Smoking Status (MU): Never Smoked Tobacco Review of Systems All Other Systems Reviewed And Are Negative: No Constitutional: Positive: Negative Skin: Positive: Negative Respiratory: Positive: Negative Cardiovascular: Positive: Negative Musculoskeletal: Positive: Arthralgia - upper back pain. Negative: Decreased ROM, Edema Neurological/Mental Status: Positive: Negative. Negative: Paresthesia, Numbness Physical Exam - Summary Physical Exam Summary: Vital Signs Reviewed: Yes A+Ox3, no distress Eyes: Conjunctiva Clear ENT: Hearing grossly normal neck: supple Respiratory: Positive: No respiratory distress, No accessory muscle use Cardiovascular: skin color reflect adequate perfusion Musculoskeletal Exam: CABRERA x 4 without difficulty, +mild TTP of mid thoracic spine and paraspinous muscles, ROM intact, sensation grossly intact Neurological: Positive: Alert, ambulatory without difficulty Psychological: Positive: age appropriate behavior Skin: Positive: no rash, no ecchymosis Vital Signs: Initial Vital Signs Temp 96.5 F 04/01/19 09:34 Pulse 82 04/01/19 09:34 Resp 16 04/01/19 09:34 BP 114/59 04/01/19 09:34 Pulse Ox 100 04/01/19 09:34 Diagnostics - Radiology thoracic Radiology Interpretation Completed By: Radiologist Summary of Radiographic Findings: IMPRESSION: OSTEOPENIA. MILD DEGENERATIVE DISC DISEASE. Back Pain Course/Dx - Course Course Of Treatment: Discussed osteopenia and degenerative disc disease found on x-ray with patient. Also discussed muscle spasms. Instructed to continue with rest, heat, and ibuprofen and to refrain from strenuous physical activity until she can follow up with physical therapy on Friday. Patient was understanding and agreed with the treatment plan. - Differential Dx/Diagnosis Provider Diagnosis: DDD (degenerative disc disease), thoracic, Spasm of thoracic back muscle Discharge ED - Sign-Out/Discharge Documenting (check all that apply): Patient Departure All imaging exams completed and their final reports reviewed: Yes - Discharge Plan Condition: Stable Disposition: HOME Patient Education Materials: Muscle Spasm (ED), Degenerative Disc Disease (ED) Forms: *Work Release Referrals: [facility] [Outside] - If Needed Poly Acevedo [employer] [Primary Care Provider] - If Needed Additional Instructions: Your xrays did show mild degenerative disc disease. Continue to rest, heat, and take ibuprofen as directed to help alleviate muscle spasm and pain relief. Refrain from strenuous physical activity until pain has fully resolved. Be sure to attend your physical therapy appointment on Friday for further evaluation and treatment. - Billing Disposition and Condition Condition: STABLE Disposition: Home
[2019-04-01 12:01] VITALS: BP 119/59
== END 2019-04-01 12:19 | disposition home or self-care (01) ==
LOC: UCEAST 09:20
DX: M51.34 Other intervertebral disc degeneration, thoracic region (principal); M62.830 Muscle spasm of back; M85.88 Other specified disorders of bone density and structure, other site; Z88.2 Allergy status to sulfonamides; Z91.09 Other allergy status, other than to drugs and biological substances
CPT/HCPCS: 72070; 99211; G0463